=== PATIENT | male | born 1995 | race Caucasian/White ===

== ENCOUNTER 2022-06-20 06:02 | Emergency (ER) | payer BC, OTHER ==
[~2022-06-20] VITALS: Ht 188 cm; Wt 113.4 kg
[2022-06-20] MEDS ORDERED: Ciprofloxacin2.5 ML RIGHTEYE (06:44)
[2022-06-20] MEDS ORDERED: KETOROLAC TROMET5 ML TOP (06:44)
== END 2022-06-20 07:28 | disposition home or self-care (01) ==
LOC: ER 06:02
DX: S05.01XA Injury of conjunctiva and corneal abrasion without foreign body, right eye, initial encounter (principal); W55.03XA Scratched by cat, initial encounter
CPT/HCPCS: 99283-25; A9270